=== PATIENT | male | born 1985 | race Caucasian/White ===

== ENCOUNTER 2023-06-13 19:37 | Inpatient (IN) | payer BC, SELFPAY ==
--- NOTE | ~2023-06-13 | US_ITS ---
EXAMINATION: US right upper quadrant DATE: 06/13/2023 22:48 INDICATION: pancreatitis TECHNIQUE: Multiple grayscale and Doppler ultrasound images of the right upper quadrant were obtained . COMPARISON: None available. FINDINGS: Pancreas not visualized. Limited parenchymal evaluation, diffuse echogenicity. No surface n odularity. Normal hepatopetal flow in the main portal vein. The gallbladder is normal with no abnorma l wall thickening, pericholecystic fluid or stones. The common bile duct measures 3 mm. There was no sonographic Wilson sign. IMPRESSION: Pancreas not visualized. Echogenic liver, most commonly due to steatosis but also can be seen with hepatitis and fibrosis. Reviewed, dictated and finalized at location K. IMPRESSION: Pancreas not visualized. Echogenic liver, most commonly due to steatosis but also can be seen with hepat itis and fibrosis.
--- NOTE | ~2023-06-13 | XR_ITS ---
EXAMINATION: XR chest 2V Exam Date/Time: 06/13/2023 22:48 CDT HISTORY: sepsis Comparison: 02/25/2013. RESULT: Lines, tubes, and devices: None. Lungs and pleura: Clear. Cardiomediastinal silhouette: Stable. Other: No acute osseous or upper abdominal finding. IMPRESSION: No acute cardiopulmonary process. Reviewed, dictated and finalized at location K.
--- NOTE | ~2023-06-13 | CT_ITS ---
EXAMINATION: CT abdomen pelvis w con DATE: 06/13/2023 22:51 INDICATION: Pancreatitis, RUQ and LUQ pain TECHNIQUE: Computed tomography (CT) of the abdomen and pelvis was performed with 100 mL Omnipaque-350 intravenous contrast. Automated exposure control and iterative reconstruction technique were employe d. The dose-length product was 1724.86 mGy-cm. COMPARISON: Right upper quadrant ultrasound, same date. FINDINGS: Lower thorax: Multiple sub-6 mm pulmonary nodules. Liver: Steatosis. Biliary/Gallbladder: Gallbladder is normal. No bile duct dilation. Pancreas: No mass or duct dilation. Mild fat stranding surrounding the body and tail the pancreas. Spleen: Normal. Adrenals:No mass. Kidneys: Simple left lower pole cyst. No suspicious mass, obstructing stone, or hydronephrosis. GI tract: No small or large bowel dilation. Appendix not confidently visualized. Mesentery/Peritoneum: No mass or free air. Small volume fluid layering along the anterior left latera l conal fascia. Retroperitoneum: No mass. Pelvis: Pelvic organs are within normal limits. Soft Tissues: Uncomplicated appearing fat-containing infraumbilical midline abdominal hernia. Small f at-containing bilateral inguinal hernias. Bones: No acute osseous finding. IMPRESSION: Acute interstitial pancreatitis. Hepatic steatosis. Multiple sub-6 mm pulmonary nodules, likely benign. No follow-up necessary unless the patient is at h igh risk in which case consider optional low-dose noncontrast CT of the chest in 12 months. Reviewed, dictated and finalized at location K. IMPRESSION: Acute interstitial pancreatitis. Hepatic steatosis. Multiple sub-6 mm pulmonary nodules, likely benign. No follow-up necessary unle ss the patient is at high risk in which case consider optional low-dose noncont rast CT of the chest in 12 months.
[2023-06-13 19:55] VITALS: BP 101/69; PULSE 126; RESP 20; TEMP 36.9; O2SAT 97
--- NOTE | 2023-06-13 19:59 | ECG_ITS ---
Measurements Intervals [place] Rate: 115 P: 27 AR: 133 QRS: 2 QRSD: 83 T: 52 QT: 311 QTc: 431 Interpretive Statements SINUS TACHYCARDIA POSSIBLE LEFT ATRIAL ENLARGEMENT [-0.1mV P-WAVE IN V1/V2] MINIMAL ST DEPRESSION [0.025+ mV ST DEPRESSION] ABNORMAL RHYTHM ECG NO PREVIOUS ECG AVAILABLE FOR COMPARISON Electronically Signed On 06-14-2023 15:57:03 CDT by Claire Luciano M.D.
[2023-06-13 20:22] LABS: Basophils Absolute Auto 0.1 K/mm3 (0.0-0.1); Basophils Percent Auto 0.3 % (0.2-1.2); Eosinophils Percent Auto 0.1 % (0-4.4); Hematocrit 44.5 % (42.0-52.0); Immature Granulocyte Absolute 0.15 K/mm3 (0.00-0.031); Immature Granulocyte Percent A 0.7 % (0-0.5); Lymphocytes Absolute Auto 1.85 K/mm3 (0.9-3.2); Lymphocytes Percent Auto 8.5 % (18.3-44.2); Mean Corpuscular HGB Conc 33.7 g/dl (32-36); Mean Corpuscular Hemoglobin 30.2 pg (26-34); Mean Corpuscular Volume 89.7 fl (80-100); Mean Platelet Volume 9.2 fl (7.4-10.4); Monocytes Absolute Auto 1.3 K/mm3 (0.1-0.6); Monocytes Percent Auto 6.1 % (2.6-8.5); Neutrophils Absolute Auto 18.5 K/mm3 (1.3-6.7); Neutrophils Percent Auto 84.3 % (45.5-73.1); Platelet Count Result 347 k/mm3 (150-375); Red Blood Count 4.96 M/mm3 (4.6-6.20); Red Cell Distribution Width 12.5 % (11.5-14.5); White Blood Count 21.9 K/mm3 (4.5-10.0)
[2023-06-13 20:42] LABS: Alanine Aminotransferase 28 U/L (6-50); Albumin Level 4.4 g/dL (3.5-5.1); Alkaline Phosphatase 89 U/L (38-126); Anion Gap 8 mmol/L (8-16); Aspartate Amino Transferase 20 U/L (17-59); Bilirubin,Total 1.1 mg/dL (0.2-1.3); Blood Urea Nitrogen 12 mg/dL (9-20); Calcium 9.1 mg/dL (8.4-10.2); Carbon Dioxide 28 mmol/L (22-30); Chloride 101 mmol/L (98-107); Estimated CRCL calculation 173 ml/min; Estimated Glomerular Filt Rate > 60; Glucose 157 mg/dL (65-110); Potassium 4.5 mmol/L (3.4-5.0); Sodium 137 mmol/L (137-145)
[2023-06-13 21:27] LABS: Lipase 2561 U/L (23-300)
--- NOTE | 2023-06-13 21:45 | ED.ABDPAIN ---
HPI - Abdominal Pain General Chief Complaint: Abdominal Pain <Mallory Cueto PA-C - Last Filed: 06/14/23 00:30> Stated Complaint: abdominal pain <Mallory Cueto PA-C - Last Filed: 06/14/23 00:30> Time Seen by Provider: 06/13/23 21:33 <Mallory Cueto PA-C - Last Filed: 06/14/23 00:30> History of Present Illness HPI narrative: 37-year-old male with a history of umbilical hernia repair multiple years ago reports for evaluation for left upper quadrant abdominal pain that started last night. Patient states he was eating M&Ms and Fritos at the onset of his left upper quadrant abdominal pain that radiates to his back which has since persisted to today. He states he had a bowel movement yesterday around 11 to 12 PM and has not had 1 since and feels constipated. He does report passing gas. He reports nausea but denies vomiting, diarrhea. He states that the abdominal pain gets worse when he eats. He denies chest pain, dyspnea, drug use, dysuria, hematuria. He reports drinking alcohol once a month. His last alcoholic beverage was a a Julius and Coke on May 31. He denies recent insect bites or injuries. He denies fever, body aches or chills, cough or congestion. He does note he recently started Mounjaro for type 2 diabetes and weight loss. He started at 2 and half months ago, his last shot was yesterday morning. <Mallory Cueto PA-C - Last Filed: 06/14/23 00:30> Related Data Home Medications: Home Medications Medication Instructions Recorded Confirmed atorvastatin 40 mg tablet 40 mg PO DAILY 06/14/23 06/14/23 gabapentin 300 mg capsule 300 mg PO TID 06/14/23 06/14/23 lisinopril 2.5 mg tablet 2.5 mg PO DAILY 06/14/23 06/14/23 metformin 500 mg tablet 500 mg PO BID 06/14/23 06/14/23 tirzepatide 2.5 mg/0.5 mL 5 mg subcut WEEKLY 06/14/23 06/14/23 subcutaneous pen injector (Mounjaro) <CRISTIANO Cochran Last Filed: 06/14/23 00:30> Allergies/Adverse Reactions: Allergies Allergy/AdvReac Type Severity Reaction Status Date / Time No Known Allergies Allergy Unknown Unverified 09/07/14 17:41 <Mallory Cueto PA-C - Last Filed: 06/14/23 00:30> Review of Systems Review of Systems: CONSTITUTIONAL: Denies fever, chills EYES: Denies visual changes, redness, or discharge. ENT: Denies rhinorrhea, congestion, sore throat, or otalgia. CARDIOVASCULAR: Denies chest pain, palpitations, or edema. RESPIRATORY: Denies cough or dyspnea. GASTROINTESTINAL: See HPI GENITOURINARY: Denies dysuria or hematuria. SKIN: Denies rash or itching. MUSCULOSKELETAL: See HPI NEUROLOGIC: Denies headache, numbness, dizziness, or weakness. PSYCHIATRIC: Denies anxiety or depression. <Mallory Cueto PA-C - Last Filed: 06/14/23 00:30> [facility] Family History Family History: Family History (Updated 06/14/23 @ 01:45 by Ameena Sr RN) Mother Acute myocardial infarction Cerebrovascular accident Father Diabetes mellitus Hypertension <Mallory Cueto PA-C - Last Filed: 06/14/23 00:30> Social History Social History: Social History Smoking status: Never smoker Alcohol intake: never Substance use: never Lack of Transportation: No Lack of Food: Never True Current Housing: I Have Housing Concerned About Future Housing: No Difficulty Paying Gas/Electric Bills: No Difficulty Paying for Meds: No Currently Unemployed: No Education: High School Diploma/GED Difficulty w/ Childcare or Family Care: No Spiritual care concerns: No <Mallory Cueto PA-C - Last Filed: 06/14/23 00:30> Exam Narrative: GENERAL: Well-appearing, in no acute distress. Patient resting comfortably in exam bed. He is pleasant and conversational. HEAD: Normocephalic EYES: PERRLA ENT: Nares clear. Mucous membranes moist. Oropharynx without tonsillar hypertrophy exudate or other lesions. NECK: Supple. CHEST: N
[2023-06-13] MEDS: ONDANSETRON INJ 4 MG/2 ML VIAL IV PUSH (21:53)
[2023-06-13] MEDS: MORPHINE SULFATE (*CRX) 4 MG/ML INJ IV PUSH (21:53)
[2023-06-13 21:59] VITALS: PULSE 112; RESP 18; O2SAT 98
[2023-06-13] MEDS: PIPERACILLN/TAZ 3.375GM/NS50ML 3.375 GM/50 ML BAG IVPB (21:59)
[2023-06-13 22:00] VITALS: BP 137/85; PULSE 119; RESP 20; O2SAT 98
[2023-06-13 22:01] VITALS: BP 139/84; PULSE 117; RESP 13; O2SAT 98
[2023-06-13 22:06] LABS: Prothrombin Time 13.6 Seconds (11.1-14.7)
[2023-06-13 22:07] LABS: Lactic Acid Reflex 1.2 mmol/L (0.7-2.0); Partial Thromboplastin Time 29.1 SECONDS (22.3-36.8)
[2023-06-13 22:33] LABS: CRP 4.9 mg/dL (<1.0)
--- NOTE | 2023-06-13 22:57 | PC.NURSE ---
Report given to VICENTE Narvaez, no questions. Care of pt transferred.
[2023-06-13] MEDS: VANCOMYCIN 1,250 MG/NS 250 ML 1,250 MG/250 ML BAG 166.67 MG IVPB (23:05)
[2023-06-13 23:15] VITALS: BP 142/75; PULSE 113; RESP 15; O2SAT 100
[2023-06-13 23:37] LABS: Appearance Urine Clear (Clear); Bilirubin Urine Negative (Negative); Blood Urine Trace-intact (Negative); Color Urine Yellow (Yellow); Glucose Urine UA Negative (Negative); Ketones Urine Negative (Negative); Leukocyte Esterase Ur Negative LEU/UL (Negative); Nitrate Urine Negative (Negative); Protein Urine 1+ mg/dL (Negative); Specific Grav Ur 1.015 (1.001-1.035); Urobilinogen Urine 0.2 mg/dL (<2.0); pH Urine 8.5 (5.0-9.0)
[2023-06-13 23:41] LABS: Bacteria Urine None Seen /hpf; Non Pathogenic Casts 0-2; Squamous Epithelial Cell Urine None seen /hpf (Few); WBC Urine 0-5 /hpf
[2023-06-13 23:42] LABS: Add Urine Microscopic? YES
[2023-06-14] VITALS (8 sets, daily range): BP systolic 121–145; BP diastolic 62–78; PULSE 92–118; RESP 14–20; TEMP 35.6–37.2; O2SAT 98–100
[2023-06-14 00:10] LABS: Troponin I < 0.012 ng/mL (0.000-0.034)
[2023-06-14] MEDS: VANCOMYCIN 1,250 MG/NS 250 ML 1,250 MG/250 ML BAG 166.67 MG IVPB (00:57)
[2023-06-14] MEDS: HYDROmorphone HCL INJ (*CRX) 1 MG/ML SYR IV PUSH ×5 (01:08→21:53)
--- NOTE | 2023-06-14 01:42 | ADMGEN ---
This patient, Thomas Delacruz, was admitted to Medical Room 346-01. Patient/family oriented to hospital policies and general routines including ID bracelet, bed and alarms, visiting hours, pain management, procedures, bathroom and other care routines, personal items, smoking policy, room service/diet, and visiting hours. Information on how to activate the Rapid Response Team has been discussed. Patient/Family are encouraged to report perceived risks to care and to ask questions if they do not understand what they are told or what they should do.
[2023-06-14] MEDS: SODIUM CHLORIDE 0.9% IV 1,000 ML 125 ML IV CONT ×4 (02:00→20:09)
--- NOTE | 2023-06-14 03:55 | PM.IMHP ---
H&P: HPI History of Present Illness Date/Time: 06/14/23 03:55 Chief Complaint: patient brought to the ER for evaluation of his abdominal pain Narrative: He is a pleasant young super morbidly obese male who has diabetes and has been started on Mounjaro for his diabetes and weight loss two and a half months ago. Since then he has lost 20 lbs. He was eating M7Ms and Fritos at home when he started having epigastric pain radiating to his back, intensity 6-7/10. He had a bowel movement yesterday and feels a bit constipated. He does report passing gas. He got concerned and was brought to the ER for evaluation, workup was done which showed pancreatitis likely secondary to Mounjaro. He was started on aggressive IV hydration and is being admitted for medical management, close observation and GI evaluation. Review of Systems Review of Systems: he denies any palpitations, fever rigor chills, dizziness or loss of consciousness. Complains of some nausea, but no vomiting or diarrhea All systems reviewed & are unremarkable except as noted in HPI and below PMFSH Past Medical History Medical History (Updated 06/14/23 @ 04:06 by Sanford Barker MD) Morbid obesity Type 2 diabetes mellitus with hyperglycemia Family History Family History Mother Acute myocardial infarction Cerebrovascular accident Father Diabetes mellitus Hypertension Social History Social History Smoking status: Never smoker Alcohol intake: never Substance use: never Lack of Transportation: No Lack of Food: Never True Current Housing: I Have Housing Concerned About Future Housing: No Difficulty Paying Gas/Electric Bills: No Difficulty Paying for Meds: No Currently Unemployed: No Education: High School Diploma/GED Difficulty w/ Childcare or Family Care: No Spiritual care concerns: No Meds Home Medications and Allergies Home Medications Medication Instructions Recorded Confirmed Type atorvastatin 40 mg tablet 40 mg PO DAILY 06/14/23 06/14/23 History gabapentin 300 mg capsule 300 mg PO TID 06/14/23 06/14/23 History lisinopril 2.5 mg tablet 2.5 mg PO DAILY 06/14/23 06/14/23 History metformin 500 mg tablet 500 mg PO BID 06/14/23 06/14/23 History tirzepatide 2.5 mg/0.5 mL 5 mg subcut WEEKLY 06/14/23 06/14/23 History subcutaneous pen injector (Hammad) Allergies Allergy/AdvReac Type Severity Reaction Status Date / Time No Known Allergies Allergy Unknown Unverified 09/07/14 17:41 Vital Signs Vital Signs - 24 hr 06/13/23 19:55 06/13/23 21:59 06/13/23 22:00 Temperature 36.9 C Pulse Rate 126 H 112 H 119 H Respiratory Rate 20 18 20 Blood Pressure 101/69 137/85 Pulse Oximetry 97 98 98 Oxygen Delivery Room Air 06/13/23 22:01 06/13/23 23:15 06/14/23 01:09 Temperature Pulse Rate 117 H 113 H 118 H Respiratory Rate 13 15 14 Blood Pressure 139/84 142/75 H 121/64 Pulse Oximetry 98 100 100 Oxygen Delivery 06/14/23 01:54 06/14/23 01:45 Temperature 37 C Pulse Rate 110 H Respiratory Rate 16 Blood Pressure 131/68 Pulse Oximetry 98 Oxygen Delivery Room Air Exam Narrative: PHYSICAL EXAMINATION: Vital signs: Please see the chart General physical exam: super morbidly obese white male lying in bed, appears to be weak and tired Head/eyes: Atraumatic, EOMI, PERRLA ENT: Moist mucous membranes, nasal passages clear Neck: Supple, full range of motion, trachea midline CVS: S1 + S2, regular rate and rhythm, no murmurs Respiratory: Bilaterally fair air entry in both lung goss, mild B/L crackles, symmetric chest expansion, no distress Abdomen: Soft, + epigastric abdominal tenderness on palpation, bowel sounds +ve, no organomegaly Extremities: No clubbing, no cyanosis, no edema, no calf tenderness Musculoskeletal: Moves all, adequate range of motion, no muscle spasms Skin: Warm, dry, no j
[2023-06-14 06:03] LABS: Alanine Aminotransferase 21 U/L (6-50); Albumin Level 3.6 g/dL (3.5-5.1); Alkaline Phosphatase 68 U/L (38-126); Anion Gap 5 mmol/L (8-16); Aspartate Amino Transferase 16 U/L (17-59); Bilirubin,Total 0.9 mg/dL (0.2-1.3); Blood Urea Nitrogen 12 mg/dL (9-20); Calcium 7.9 mg/dL (8.4-10.2); Carbon Dioxide 29 mmol/L (22-30); Chloride 103 mmol/L (98-107); Estimated CRCL calculation 155 ml/min; Estimated Glomerular Filt Rate > 60; Glucose 131 mg/dL (65-110); Potassium 4.4 mmol/L (3.4-5.0); Sodium 137 mmol/L (137-145)
[2023-06-14 06:04] LABS: Lipase 1465 U/L (23-300); Magnesium 2.3 mg/dL (1.6-2.3); Phosphorus 3.4 mg/dL (2.5-4.5)
[2023-06-14 06:11] LABS: Basophils Absolute Auto 0.1 K/mm3 (0.0-0.1); Basophils Percent Auto 0.3 % (0.2-1.2); Eosinophils Absolute Auto 0.1 K/mm3 (0-0.3); Eosinophils Percent Auto 0.4 % (0-4.4); Hematocrit 39.8 % (42.0-52.0); Hemoglobin 12.6 g/dL (14.0-18.0); Immature Granulocyte Percent A 0.6 % (0-0.5); Lymphocytes Absolute Auto 2.45 K/mm3 (0.9-3.2); Mean Corpuscular HGB Conc 31.7 g/dl (32-36); Mean Corpuscular Hemoglobin 29.5 pg (26-34); Mean Corpuscular Volume 93.2 fl (80-100); Mean Platelet Volume 9.3 fl (7.4-10.4); Monocytes Absolute Auto 1.5 K/mm3 (0.1-0.6); Monocytes Percent Auto 8.7 % (2.6-8.5); Neutrophils Absolute Auto 13.3 K/mm3 (1.3-6.7); Platelet Count Result 294 k/mm3 (150-375); Red Blood Count 4.27 M/mm3 (4.6-6.20); Red Cell Distribution Width 12.5 % (11.5-14.5); White Blood Count 17.5 K/mm3 (4.5-10.0)
[2023-06-14 07:57] LABS: Glucose Point of Care 141 mg/dl (65-105)
[2023-06-14] MEDS: ATORVASTATIN 40 MG TABLET PO (08:42)
[2023-06-14] MEDS: ENOXAPARIN 40 MG/0.4 ML SYRINGE SUB-Q ×2 (08:42→20:09)
[2023-06-14] MEDS: lisinopriL 2.5 MG TABLET PO (08:42)
[2023-06-14] MEDS: GABAPENTIN 300 MG CAPSULE PO ×3 (08:42→17:50)
--- NOTE | 2023-06-14 08:50 | PM.IMPN ---
Progress Note: A&P Assessment and Plan (1) Drug-induced pancreatitis: Code(s): K85.30 - Drug induced acute pancreatitis without necrosis or infection Status: Acute Assessment and Plan: 06/14/23: New onset acute pancreatitis most likely related to his use of Mounjaro that he uses for his type 2 diabetes mellitus for the past 2 and half months. Hold Mounjaro Upper quadrant ultrasound revealing echogenic liver, most commonly due to steatosis but also can be seen with hepatitis and fibrosis CT abdomen/pelvis with contrast revealed acute interstitial pancreatitis, hepatic steatosis, and multiple pulmonary nodules Lipase originally 2561 now down to 1465, C reactive protein 4.9, white blood cell count 17.5, absolute neutrophils 13.3 Patient was given a course of Zosyn and vancomycin while in the emergency room Blood cultures pending Continue with Dilaudid for pain control, patient reports 6 to 7/10 on the pain scale Continue to monitor labs including lipase Continue clear liquid diet for now Continue IV fluids for hydration (2) Morbid obesity: Code(s): E66.01 - Morbid (severe) obesity due to excess calories Status: Acute Assessment and Plan: 166.4 kg, BMI 49.8 (3) Type 2 diabetes mellitus with hyperglycemia: Code(s): E11.65 - Type 2 diabetes mellitus with hyperglycemia Status: Acute Assessment and Plan: 06/14/23: Mounjaro on hold Continue sliding scale insulin and Accu-Checks (4) Pancreatitis: Qualifiers: Acute pancreatitis complication: unspecified Chronicity: acute Pancreatitis type: other Qualified Code(s): K85.80 - Other acute pancreatitis without necrosis or infection Code(s): K85.90 - Acute pancreatitis without necrosis or infection, unspecified Status: Acute Assessment and Plan: see above plan Time Spent With Patient Time with patient: Greater than 35 minutes Subjective Date/time seen: 06/14/23 08:50 Interval history: 06/14/23: This is a 37-year-old male who presented to the ER with complaints of abdominal pain yesterday. Patient has a past medical history of diabetes and has been started on Mounjaro for his diabetes and weight loss about 2 and half months ago. He started having intense epigastric pain 7/10 while eating. He was concerned so he presented to the ED for further evaluation. Workup so far included upper quadrant ultrasound which shown echogenic liver, most commonly due to steatosis but also can be seen hepatitis and fibrosis. He also had a CT of the abdomen pelvis with contrast which showed acute interstitial pancreatitis, hepatic steatosis, and had multiple pulmonary nodules. In addition he had a chest x-ray resulted with no acute cardiopulmonary process. Labs today include white blood cell count of 17.5, hemoglobin 12.6, hematocrit 39.8, absolute neutrophil 13.3, sodium 137, potassium 4.4, chloride 103, bicarb 29, BUN 12, creatinine 0.9, hemoglobin A1c 6.0, AST 16, C reactive protein 4.9, and lipase is down to 1465. His blood sugars have been ranging 131-157. He has blood cultures pending. Patient was given Zofran and vancomycin yesterday. On exam patient is alert and oriented x3. He reports that his pain is still about a 6 to 7/10. Patient denies fever, chills, nausea, vomiting, diarrhea. Patient did have a liquid diarrhea bowel movement prior to being admitted. He was started on a clear liquid diet however after he takes in a little bit that is when the pain starts kicking in. He is being covered with Dilaudid for pain. Patient also had concerns about sleep as he normally sleeps during the day and works during the night. Order for melatonin 5 mg p.o. to be given at night for sleep. Patient has no other complaints. I discussed plan of care with patient and he is agreeable to this treatment plan. We will continue to trend labs and evaluate symptoms. Review of Systems Review of Systems: All system
[2023-06-14 11:36] LABS: Glucose Point of Care 129 mg/dl (65-105)
[2023-06-14 16:42] LABS: Glucose Point of Care 83 mg/dl (65-105)
[2023-06-14 20:28] LABS: Glucose Point of Care 138 mg/dl (65-105)
[2023-06-15 01:20] VITALS: O2SAT 99
[2023-06-15] MEDS: ACETAMINOPHEN 325 MG TABLET 650 MG PO (02:08)
[2023-06-15] MEDS: SODIUM CHLORIDE 0.9% IV 1,000 ML 125 ML IV CONT ×3 (02:11→21:25)
[2023-06-15] MEDS: HYDROcodone/acetaminophen (*CRX) 10-325 MG TABLET 1 TAB PO (04:34)
[2023-06-15 04:35] VITALS: BP 152/77; PULSE 109; RESP 20; TEMP 36.1; O2SAT 97
--- NOTE | 2023-06-15 04:38 | PC.NURSE ---
Pt called out and asked for tylenol around 2a for back pain. States our mattresses are to thin and uncomfortable. He called again around 420 stating again our beds are uncomfortable and needs something stronger for his back so could sleep. He also states all abdominal pain is resolved. I called and got an order for him to try norco
[2023-06-15 06:03] LABS: Basophils Absolute Auto 0.1 K/mm3 (0.0-0.1); Basophils Percent Auto 0.3 % (0.2-1.2); Eosinophils Absolute Auto 0.2 K/mm3 (0-0.3); Eosinophils Percent Auto 0.9 % (0-4.4); Hematocrit 37.3 % (42.0-52.0); Hemoglobin 12.1 g/dL (14.0-18.0); Immature Granulocyte Absolute 0.12 K/mm3 (0.00-0.031); Immature Granulocyte Percent A 0.6 % (0-0.5); Lymphocytes Absolute Auto 2.15 K/mm3 (0.9-3.2); Lymphocytes Percent Auto 10.8 % (18.3-44.2); Mean Corpuscular HGB Conc 32.4 g/dl (32-36); Mean Corpuscular Hemoglobin 29.6 pg (26-34); Mean Corpuscular Volume 91.2 fl (80-100); Mean Platelet Volume 8.9 fl (7.4-10.4); Monocytes Absolute Auto 1.8 K/mm3 (0.1-0.6); Monocytes Percent Auto 8.9 % (2.6-8.5); Neutrophils Absolute Auto 15.6 K/mm3 (1.3-6.7); Neutrophils Percent Auto 78.5 % (45.5-73.1); Platelet Count Result 271 k/mm3 (150-375); Red Blood Count 4.09 M/mm3 (4.6-6.20); Red Cell Distribution Width 12.4 % (11.5-14.5); White Blood Count 19.8 K/mm3 (4.5-10.0)
[2023-06-15 06:12] LABS: Alanine Aminotransferase 20 U/L (6-50); Albumin Level 3.6 g/dL (3.5-5.1); Alkaline Phosphatase 74 U/L (38-126); Anion Gap 4 mmol/L (8-16); Aspartate Amino Transferase 21 U/L (17-59); Bilirubin,Total 1.3 mg/dL (0.2-1.3); Blood Urea Nitrogen 7 mg/dL (9-20); Calcium 8.3 mg/dL (8.4-10.2); Carbon Dioxide 28 mmol/L (22-30); Chloride 101 mmol/L (98-107); Estimated CRCL calculation 195 ml/min; Estimated Glomerular Filt Rate > 60; Glucose 129 mg/dL (65-110); Lipase 275 U/L (23-300); Potassium 3.9 mmol/L (3.4-5.0); Sodium 133 mmol/L (137-145)
[2023-06-15 08:39] LABS: Glucose Point of Care 118 mg/dl (65-105)
[2023-06-15] MEDS: ATORVASTATIN 40 MG TABLET PO (09:28)
[2023-06-15] MEDS: ENOXAPARIN 40 MG/0.4 ML SYRINGE SUB-Q ×2 (09:29→21:25)
[2023-06-15] MEDS: GABAPENTIN 300 MG CAPSULE PO ×3 (09:29→17:25)
[2023-06-15] MEDS: lisinopriL 2.5 MG TABLET PO (09:29)
[2023-06-15 10:13] VITALS: BP 141/76; PULSE 96; RESP 18; TEMP 37.2; O2SAT 100
[2023-06-15 11:49] LABS: Glucose Point of Care 126 mg/dl (65-105)
[2023-06-15] MEDS: HYDROcodone/acetaminophen (*CRX) 5-325 MG TABLET 1 TAB PO ×2 (14:25→21:24)
[2023-06-15 14:48] VITALS: BP 134/70; PULSE 100; RESP 18; TEMP 36.9; O2SAT 98
--- NOTE | 2023-06-15 14:53 | PM.IMPN ---
Progress Note: A&P Assessment and Plan (1) Drug-induced pancreatitis: Code(s): K85.30 - Drug induced acute pancreatitis without necrosis or infection Status: Acute Assessment and Plan: New onset acute pancreatitis most likely related to his use of Mounjaro that he uses for his type 2 diabetes mellitus for the past [address] abdomen/pelvis with contrast revealed acute interstitial pancreatitis, hepatic steatosis, and multiple pulmonary nodules Hold Mounjaro Lipase originally 2561 now down to 275, C reactive protein 4.9, white blood cell count 19.8 Blood cultures pending Continue with Dilaudid for pain control, patient reports 6 to 7/10 on the pain scale Advance diet as tolerated Continue IV fluids for hydration (2) Morbid obesity: Code(s): E66.01 - Morbid (severe) obesity due to excess calories Status: Acute Assessment and Plan: 166.4 kg, BMI 49.8 (3) Type 2 diabetes mellitus with hyperglycemia: Code(s): E11.65 - Type 2 diabetes mellitus with hyperglycemia Status: Acute Assessment and Plan: Mounjaro on hold Continue sliding scale insulin and Accu-Checks (4) Pancreatitis: Qualifiers: Acute pancreatitis complication: unspecified Chronicity: acute Pancreatitis type: other Qualified Code(s): K85.80 - Other acute pancreatitis without necrosis or infection Code(s): K85.90 - Acute pancreatitis without necrosis or infection, unspecified Status: Acute Assessment and Plan: see above plan Subjective Date/time seen: 06/15/23 14:53 Interval history: Patient complaining of pain radiating to his back. Discussed with patient that the goal is pain management and rehydration and he understood this. Patient did well with a clear liquid diet and will be advanced as tolerated. Patient denies any nausea vomiting. Exam Narrative: GENERAL: Comfortable, no acute distress HENMT: moist mucous membranes EYES: EOM intact b/l NECK: no lymphadenopathy RESPIRATORY: clear to auscultation CARDIO: RRR GI: soft, nontender, bowel sounds present SKIN: no rashes EXTREMITIES: no edema, redness or tenderness Objective Data Vital Signs Vital Signs: Vital Signs - 24 hr 06/14/23 16:00 06/14/23 20:00 06/14/23 20:07 Temperature 96.7 F L 97.2 F L Pulse Rate 92 102 H Respiratory Rate 18 18 Blood Pressure 129/78 145/73 H Pulse Oximetry 100 100 Oxygen Delivery Room Air 06/14/23 23:23 06/15/23 01:20 06/15/23 04:35 Temperature 97 F L Pulse Rate 109 H Respiratory Rate 20 Blood Pressure 152/77 H Pulse Oximetry 98 99 97 Oxygen Delivery 06/15/23 10:13 06/15/23 08:00 06/15/23 14:48 Temperature 98.9 F 98.4 F Pulse Rate 96 100 Respiratory Rate 18 18 Blood Pressure 141/76 H 134/70 Pulse Oximetry 100 98 Oxygen Delivery Room Air Intake/Output Intake/Output: Intake & Output 06/12/23 06/13/23 06/14/23 06/15/23 23:59 23:59 23:59 23:59 Intake Total 1050 5608 1999 Balance 1050 5608 1999 Meds/Results Medications: Active Medications Generic Name Dose Route Start Last Admin Trade Name Freq PRN Reason Stop Dose Admin Acetaminophen 650 mg 06/14/23 04:12 06/15/23 02:08 Acetaminophen 325 Mg Tablet PO 650 mg Q4H PRN Administration Mild Pain (1-3) or Fever Hydrocodone Bitart/Acetaminophen 1 tab 06/15/23 13:23 06/15/23 14:25 Hydrocodone/Acetaminophen (*Crx) 5-325 Mg Tablet PO 1 tab Q6H PRN Administration Pain Rated 4-6 Al Hydrox/Mg Hydrox/Simethicone 30 ml 06/14/23 04:12 Mag Hydrox/Al Hydrox/Simeth 30 Ml Udc PO QID PRN Dyspepsia Atorvastatin Calcium 40 mg 06/14/23 09:00 06/15/23 09:28 Atorvastatin 40 Mg Tablet PO 40 mg DAILY CLEOPATRA Administration Dextrose 12.5 gm 06/14/23 04:12 Dextrose 50% 25 Gm/50 Ml Syringe IV PUSH PRN PRN Hypoglycemia Protocol Enoxaparin Sodium 40 mg 06/14/23 09:00 06/15/23 09:29 E
[2023-06-15 17:02] LABS: Glucose Point of Care 116 mg/dl (65-105)
[2023-06-15 20:00] VITALS: BP 122/45; PULSE 100; RESP 16; TEMP 36.9; O2SAT 100
[2023-06-15 20:43] LABS: Glucose Point of Care 139 mg/dl (65-105)
[2023-06-15 22:32] VITALS: O2SAT 99
[2023-06-16 04:00] VITALS: BP 121/70; PULSE 67; RESP 14; TEMP 36.9; O2SAT 99
[2023-06-16 05:47] LABS: Basophils Absolute Auto 0.1 K/mm3 (0.0-0.1); Basophils Percent Auto 0.4 % (0.2-1.2); Eosinophils Absolute Auto 0.3 K/mm3 (0-0.3); Eosinophils Percent Auto 2.1 % (0-4.4); Hematocrit 35.7 % (42.0-52.0); Hemoglobin 11.5 g/dL (14.0-18.0); Immature Granulocyte Absolute 0.07 K/mm3 (0.00-0.031); Immature Granulocyte Percent A 0.6 % (0-0.5); Lymphocytes Absolute Auto 2.21 K/mm3 (0.9-3.2); Lymphocytes Percent Auto 17.5 % (18.3-44.2); Mean Corpuscular HGB Conc 32.2 g/dl (32-36); Mean Corpuscular Hemoglobin 29.9 pg (26-34); Mean Corpuscular Volume 92.7 fl (80-100); Mean Platelet Volume 9.3 fl (7.4-10.4); Monocytes Percent Auto 7.6 % (2.6-8.5); Neutrophils Absolute Auto 9.1 K/mm3 (1.3-6.7); Neutrophils Percent Auto 71.8 % (45.5-73.1); Platelet Count Result 257 k/mm3 (150-375); Red Blood Count 3.85 M/mm3 (4.6-6.20); Red Cell Distribution Width 12.7 % (11.5-14.5); White Blood Count 12.6 K/mm3 (4.5-10.0)
[2023-06-16] MEDS: SODIUM CHLORIDE 0.9% IV 1,000 ML 125 ML IV CONT (06:12)
[2023-06-16 06:18] LABS: Anion Gap 6 mmol/L (8-16); Blood Urea Nitrogen 10 mg/dL (9-20); CRP 21.3 mg/dL (<1.0); Calcium 8.2 mg/dL (8.4-10.2); Carbon Dioxide 26 mmol/L (22-30); Chloride 103 mmol/L (98-107); Estimated CRCL calculation 225 ml/min; Estimated Glomerular Filt Rate > 60; Glucose 103 mg/dL (65-110); Lipase 118 U/L (23-300); Potassium 4.3 mmol/L (3.4-5.0); Sodium 135 mmol/L (137-145)
[2023-06-16 08:41] LABS: Glucose Point of Care 107 mg/dl (65-105)
[2023-06-16] MEDS: lisinopriL 2.5 MG TABLET PO (08:56)
[2023-06-16] MEDS: ENOXAPARIN 40 MG/0.4 ML SYRINGE SUB-Q (08:56)
[2023-06-16] MEDS: ATORVASTATIN 40 MG TABLET PO (08:56)
[2023-06-16] MEDS: GABAPENTIN 300 MG CAPSULE PO (08:56)
[2023-06-16 11:59] LABS: Glucose Point of Care 115 mg/dl (65-105)
--- NOTE | 2023-06-16 12:04 | PM.DS ---
DS: Admitting Diagnosis Discharge Date 06/16/23 Admitting Diagnosis pancreatitis DS: Discharge Diagnosis Discharge Diagnosis (1) Drug-induced pancreatitis: Code(s): K85.30 - Drug induced acute pancreatitis without necrosis or infection Status: Acute (2) Morbid obesity: Code(s): E66.01 - Morbid (severe) obesity due to excess calories Status: Acute (3) Type 2 diabetes mellitus with hyperglycemia: Code(s): E11.65 - Type 2 diabetes mellitus with hyperglycemia Status: Acute (4) Pancreatitis: Qualifiers: Acute pancreatitis complication: unspecified Chronicity: acute Pancreatitis type: other Qualified Code(s): K85.80 - Other acute pancreatitis without necrosis or infection Code(s): K85.90 - Acute pancreatitis without necrosis or infection, unspecified Status: Acute DS: Summary Hospital Course Hospital Course: This is a 37-year-old male with past medical history of diabetes on Mounjaro, hyperlipidemia and hypertension a presents to the ED on 06/14/2023 after having epigastric pain radiating to the back. Patient did not have any nausea, vomiting or diarrhea. Workup revealed elevated lipase with acute interstitial pancreatitis seen on abdomen pelvis CT. Patient started on IV fluids and analgesics. Patient's pain subsided with therapy. Patient was able to restart back on a diet and slowly advanced. Patient did well with a bland diet and no longer having any abdominal pain on day of discharge. Labs and vital signs are stable and he is medically cleared for discharge at this time. Time Spent with Patient Time attestation: Total time spent providing and/or coordinating discharge services: Exam Narrative: GENERAL: Comfortable, no acute distress , morbid obesity HENMT: moist mucous membranes EYES: EOM intact b/l NECK: no lymphadenopathy RESPIRATORY: clear to auscultation CARDIO: RRR GI: soft, nontender, bowel sounds present SKIN: no rashes EXTREMITIES: no edema, redness or tenderness DS: Data Data Completed and Pending Labs on day of discharge: Labs from last 24 hours 06/16/23 06/16/23 06/16/23 11:54 08:39 05:24 WBC 12.6 H RBC 3.85 L Hgb 11.5 L Hct 35.7 L MCV 92.7 MCH 29.9 MCHC 32.2 RDW 12.7 Plt Count 257 MPV 9.3 Immature Gran % (Auto) 0.6 H Neut % (Auto) 71.8 Lymph % (Auto) 17.5 L [place] % (Auto) 7.6 Eos % (Auto) 2.1 Baso % (Auto) 0.4 Lymph # (Auto) 2.21 [place] # (Auto) 1.0 H Eos # (Auto) 0.3 Baso # (Auto) 0.1 Abs Immat Gran (auto) 0.07 H Absolute Neuts (auto) 9.1 H Absolute Nucleated RBC 0.0 Nucleated RBC % 0.0 Sodium 135 L Potassium 4.3 Chloride 103 Carbon Dioxide 26 Anion Gap 6 L BUN 10 Creatinine 0.60 L Estim Creat Clear Calc 225 Estimated GFR > 60 Glucose 103 POC Capillary Glucose 115 H 107 H Calcium 8.2 L C-Reactive Protein 21.3 H Lipase 118 06/15/23 06/15/23 20:36 16:46 WBC RBC Hgb Hct MCV MCH MCHC RDW Plt Count MPV Immature Gran % (Auto) Neut % (Auto) Lymph % (Auto) [place] % (Auto) Eos % (Auto) Baso % (Auto) Lymph # (Auto) [place] # (Auto) Eos # (Auto) Baso # (Auto) Abs Immat Gran (auto) Absolute Neuts (auto) Absolute Nucleated RBC Nucleated RBC % Sodium Potassium Chloride Carbon Dioxide Anion Gap BUN Creatinine Estim Creat Clear Calc Estimated GFR Glucose POC Capillary Glucose 139 H 116 H Calcium C-Reactive Protein Lipase Preliminary micro results at discharge 06/13/23 21:49 Blood Culture - Preliminary Blood 06/13/23 21:51 Blood Culture - Preliminary Blood Discharge Plan Discharge Attending physician on discharge: Elicia Murillo Consulting providers: Mallory Cueto Discharging Clinician: Raiza Cardozo Patient Disposition: Home, Self-Care Activity: as tolerated D
== END 2023-06-16 12:37 | disposition home or self-care (01) | DRG 439 ==
LOC: ANHED 06-14 00:26 → ANH3MED 06-14 00:53
PROVIDERS: Student in an Organized Health Care Education/Training Program; Admitting Provider Family Medicine; Emergency Provider Physician Assistant; PCP Internal Medicine; Visit Provider Internal Medicine Critical Care Medicine
DX: K85.30 Drug induced acute pancreatitis without necrosis or infection (principal); Z68.42 Body mass index [BMI] 45.0-49.9, adult; T38.3X5A Adverse effect of insulin and oral hypoglycemic [antidiabetic] drugs, initial encounter; E66.01 Morbid (severe) obesity due to excess calories; E11.65 Type 2 diabetes mellitus with hyperglycemia; E78.5 Hyperlipidemia, unspecified; I10 Essential (primary) hypertension
CPT/HCPCS: 36415; 71046; 74177; 76705; 80048; 80053; 81001; 82948; 83036; 83605; 83690; 83735; 84100; 84484; 85025; 85610; 85730; 86140; 87040; 93005; 96365; 96367; 96375; 99285; A9270; J1170; J1650; J2270; J2405; J2543; J3370; J7030; Q9967